=== PATIENT | female | born 2005 | race Caucasian/White ===

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

== ENCOUNTER → 2025-04-07 | Outpatient (CLI) | payer OTHER, MEDICAID ==
[~2025-04-07] MED LIST changes: +AMIT10TA11; -AMIT10TA7; +COLA100C5 PO; +IBUP80TA PO; +NIFE1TAB52 PO; +OXYC1TAB23 PO
[2025-04-07 14:01] LABS: ALT/SGPT 36 U/L (7.0-40); AST/SGOT 22 U/L (<34); CALCIUM LEVEL 9.6 MG/DL (8.5-10.1); CARBON DIOXIDE LEVEL 27 MMOL/L (20-31); CHLORIDE LEVEL 103 MMOL/L (98-107); CREATININE FOR GFR 0.82 MG/DL (0.55-1.30); GLOMERULAR FILTRATION RATE > 90.0 (>60); POTASSIUM SERUM 4.6 MMOL/L (3.5-5.1); SODIUM LEVEL 141 MMOL/L (136-145)
[2025-04-07 14:03] LABS: ESTIMATED AVERAGE GLUCOSE 105.0 MG/DL (60-110); FREE T4 1.16 NG/DL (0.83-1.43)
== END ==
LOC: M PLALAB 09:59
PROVIDERS: ATTEND Advanced Practice Midwife
DX: Z01.419 Encounter for gynecological examination (general) (routine) without abnormal findings (principal); R63.5 Abnormal weight gain

== ENCOUNTER 2025-06-07 22:05 | Emergency (ER) | payer OTHER, MEDICAID ==
[~2025-06-07] VITALS: Ht 157.5 cm; Wt 106.4 kg
[2025-06-07 23:23] LABS: BASO # 0.1 10^3/uL (0.0-0.2); BASO % 0.5 % (0.0-1.0); EOS # 0.1 10^3/uL (0.0-0.5); EOS % 1.0 % (0.0-3.0); LYMPH # 4.2 10^3/uL (1.5-5.0); LYMPH % 31.1 % (24.0-44.0); MONO # 1.0 10^3/uL (0.0-0.8); MONO % 7.7 % (2.0-8.0); NEUTROPHILS # 7.9 10^3/uL (1.5-8.5); NEUTROPHILS % 59.1 % (36.0-66.0); PLATELET COUNT, AUTOMATED 374 10^3/uL (150-450)
[2025-06-07 23:24] LABS: KETONE, URINE AUTO RFX NEGATIVE (NEGATIVE); LEUKOCYTE ESTERASE UR AUTO RFX NEGATIVE (NEGATIVE); MUCUS, URINE RFX SMALL (NEGATIVE); NITRITE, URINE AUTO RFX NEGATIVE (NEGATIVE); RBC, URINE AUTO RFX 2 /HPF (0-3); SQUAM EPITHELIAL CELL UR AURFX 1 /HPF (0-6); WBC, URINE AUTO RFX 0 /HPF (0-3)
[2025-06-07 23:33] LABS: HCG, SERUM QUANTITATIVE < 2.6 MIU/ML (<4.2)
[2025-06-07 23:35] LABS: ALT/SGPT 36 U/L (7.0-40); AST/SGOT 22 U/L (<34); CALCIUM LEVEL 9.0 MG/DL (8.5-10.1); CARBON DIOXIDE LEVEL 24 MMOL/L (20-31); CHLORIDE LEVEL 108 MMOL/L (98-107); CREATININE FOR GFR 0.67 MG/DL (0.55-1.30); GLOMERULAR FILTRATION RATE > 90.0 (>60); POTASSIUM SERUM 3.9 MMOL/L (3.5-5.1); SODIUM LEVEL 140 MMOL/L (136-145)
[2025-06-08] MEDS: NS (Normal Saline) 0.9% 1,000 ML IV ONE (00:02)
[2025-06-08] MEDS: KETOROLAC 30 MG/ML 1 ML VIAL IV ONE (00:02)
[2025-06-08] MEDS ORDERED: ISOVUE-370 76% 100 ML VIAL As Ordered ONE (00:09)
[2025-06-08 00:10] LABS: Trichomonas vaginalis (AMP) NOT DETECTED (NEGATIVE)
[2025-06-08 00:35] LABS: GC DNA AMPLIFICATION NEGATIVE (NEGATIVE)
[2025-06-08 05:06] VITALS: BP 119/71; TEMP 96.8; O2SAT 99
== END 2025-06-08 05:07 | disposition home or self-care (01) ==
LOC: M ED 22:05
DX: R10.9 Unspecified abdominal pain (principal); F32.A Depression, unspecified; Z79.1 Long term (current) use of non-steroidal anti-inflammatories (NSAID); Z79.899 Other long term (current) drug therapy; Z79.810 Long term (current) use of selective estrogen receptor modulators (SERMs)
CPT/HCPCS: 74177; 80048; 80076; 81001; 83690; 84702; 85025; 87661; 87810; 87850; 96374; 99284; J1885; Q9967

== ENCOUNTER → 2025-07-28 | Outpatient (CLI) | payer OTHER, MEDICAID | LOC: M RAD 09:58 | PROVIDERS: ATTEND Nurse Practitioner Family | DX: R19.7 Diarrhea, unspecified (principal) ==